=== PATIENT | male | born 1995 | race Caucasian/White ===

== ENCOUNTER 2016-12-12 16:46 | Emergency (ER) | payer OTHER ==
[2016-12-12] MEDS ORDERED: fentaNYL 100 MCG/2 ML INJ IVP ONE (16:55)
--- NOTE | 2016-12-12 16:55 | EDPHY ---
H & P Stated Complaint: shoulder dislocation HPI/ROS: CHIEF COMPLAINT: Fall, shoulder pain HISTORY OF PRESENT ILLNESS: Patient arrives by EMS and is seen at time arrival. He complains of right shoulder pain. He was playing basketball when he fell awkwardly on the right arm outstretched. He felt a sudden onset of pain in the right shoulder. Significantly painful. Constant duration. Unable to move it. Some tingling in the arm. No numbness. No weakness. No head or neck injury. No pain anywhere else except the right shoulder. No position of comfort. He was administered 100 mcg of fentanyl IV and route. This did help minimally. No other associated complaints or modifying factors. PRIOR ORTHO INJURIES: None ESTABLISHED ORTHOPEDIST: None REVIEW OF SYSTEMS: Ten systems reviewed and are negative unless otherwise noted in the HPI EXAMINATION General Appearance: Alert, no distress. In obvious discomfort Cardiovascular: Pulses normal throughout. Symmetric radial pulses 2+. Brisk cap refill Neurological: A&O, sensory symmetric, strength symmetric. No wrist drop in the affected extremity Skin: Warm and dry, no rash. No laceration abrasion or contusion Extremities: Significant tenderness of the right shoulder. Range of motion not tested the right shoulder due to deformity. Range of motion of the right elbow and wrist are intact. Good strength of the right interossei. No wrist drop. Psychiatric: Mood and affect normal DIFFERENTIAL DIAGNOSES: Including but not limited to shoulder dislocation, fracture, sprain, strain MDM: 4:55 p.m. Mechanical fall with right shoulder pain. By examination, there does appear to be dislocation. No obvious area of trauma elsewhere. X-ray has been ordered. He is neurovascular intact distally. 5:00 p.m. X-ray as read by me reveals simple dislocation without obvious Bankart lesion. No fracture identified. 5:05 p.m. Successful reduction by visualization. He is neuro intact postprocedure and feeling much better. Post reduction film has been ordered. 5:20 p.m. X-ray as read by me reveals successful reduction. He remains neurovascular intact. Awake and alert conversing appropriately. We discussed discharge home with nonweightbearing on the right upper extremity until seen by Orthopedics. We discussed ED precautions. He is comfortable with this plan and discharged home in a sling and swath in stable condition, neurovascular intact. 6:00 p.m. X-ray has been read as possible Bankart lesion post reduction. I have informed the patient of this. No change in the plan, but I stressed the importance of follow up with Orthopedics for this. PROCEDURE: Closed reduction of right shoulder Consent: Verbal Location: Right shoulder Anesthesia: Intra-articular lidocaine, plain 1%, 7 mL. IV fentanyl 50 mcg Procedure: After time-out, the patient's right shoulder was placed in traction with countertraction improve traction of the scapula. Radial pulse was intact 2 + pre procedure. This was done without complication. There was successful reduction of the shoulder on 1st attempt without difficulty. Significantly improve in pain. Remains neurovascular intact. We placed him in a sling and swath postprocedure. X-rays pending. Complications: None Post-reduction film: ED Precautions: Worsening pain. Erythema, edema, cyanosis, pallor, paresthesia or anesthesia. Source: Patient, RN/MD Exam Limitations: No limitations Constitutional: Initial Vital Signs Temperature (C) 98.2 F 12/12/16 16:46 Heart Rate 85 12/12/16 16:46 Respiratory Rate 18 12/12/16 16:46 Blood Pressure 147/109 H 12/12/16 16:46 O2 Sat (%) 100 12/12/16 16:46 O2 Delivery Mode Room Air O2 (L/minute) 2 Allergies/Adverse Reactions: amoxicillin Allergy (Verified 12/12/16 16:54) Home Medications: Medication Instructions Recorded oxyCODONE HCL/ACETAMINOPHEN 1 each PO Q4-6PRN PRN #13 tablet 12/12/16 [Percocet 5-325 mg Tablet] Medical Decision Making - Diagnostics Imaging Results: Imaging Impressions Shoulder X-Ray 12/12/16 16:54 Impression: Anterior dislocation right glenohumeral joint. Shoulder X-Ray 12/12/16 17:06 Impression: Reduction of prior visualized right shoulder dislocation with apparent Hill-Sachs deformity. - Data Points Medications Given: Discontinued Medications Fentanyl (Sublimaze) 100 mcg IVP EDNOW ONE Stop: 12/12/16 16:56 Last Admin: 12/12/16 16:58 Dose: 100 mcg Departure - Departure Disposition: Home, Routine, Self-Care Clinical Impression: Dislocation of shoulder, right, closed Qualifiers: Encounter type: initial encounter Qualified Code(s): S43.004A - Unspecified dislocation of right shoulder joint, initial encounter Bankart lesion of right shoulder Qualifiers: Encounter type: initial encounter Qualified Code(s): S43.491A - Other sprain of right shoulder joint, initial encounter Condition: Good Instructions: Shoulder Dislocation (ED) Additional Instructions: 1. Nonweightbearing of the right upper extremity until seen by orthopedist 2. Do not lift right shoulder above shoulder height 3. ED precautions as discussed 4. Ibuprofen 600-800 every 8 hours as needed for pain Five. Pain medication as prescribed as needed Referrals: Patient,NotPresent [Unknown] - As per Instructions Robin Soria MD [Medical Doctor] - As per Instructions Prescriptions: oxyCODONE HCL/ACETAMINOPHEN [Percocet 5-325 mg Tablet] 1 each PO Q4-6PRN PRN # 13 tablet PRN Reason: Pain, Breakthrough
[2016-12-12] MEDS ORDERED: fentaNYL 100 MCG/2 ML INJ ONE (17:00)
[2016-12-12 18:23] VITALS: BP 134/72; PULSE 72; RESP 16; TEMP 97.9; O2SAT 97
== END 2016-12-12 18:23 | disposition home or self-care (01) ==
DX: S43.004A Unspecified dislocation of right shoulder joint, initial encounter (principal); S43.491A Other sprain of right shoulder joint, initial encounter; W18.39XA Other fall on same level, initial encounter; Y99.8 Other external cause status; Y93.67 Activity, basketball
CPT/HCPCS: 96374; J3010

== ENCOUNTER 2016-12-19 14:10 | Emergency (ER) | payer OTHER ==
[2016-12-19 14:15] VITALS: BP 138/64; PULSE 69; RESP 16; TEMP 97.7; O2SAT 99
--- NOTE | 2016-12-19 15:19 | EDPHY ---
H & P Stated Complaint: R shoulder ?dislocation Time Seen by Provider: 12/19/16 15:15 HPI/ROS: HPI: This is a 21-year-old male who presents with Chief Complaint: Right shoulder injury Location: Right shoulder Quality: Injury Duration: 1-3 hours prior to arrival Signs and Symptoms: No bleeding, no radiation, no numbness, no weakness, no tingling, no incontinence, no decreased range of motion Timing: Sudden, resolved Severity: Moderate Context: Patient had a history of a right anterior shoulder dislocation on 06/2016, seen in this ER with successful reduction. Patient admits that he has not been wearing his sling as advised never followed up with orthopedist Dr. Soria. Patient reports that he was lying on his right side on the bed, using his right hand to prop his head up, when he "felt something pop with immediate pain" in his right shoulder. He then moved his arm away from his head and felt the shoulder pop back into place. Modifying Factors: Reduction Comment: ROS: Constitutional: No fever, no chills, no weight loss Eyes: No blurred vision Respiratory: No shortness of breath, no cough Cardiovascular: No chest pain Gastrointestinal: No nausea, no vomiting no diarrhea Genitourinary: No dysuria Extremities: No myalgias Neurologic: No weakness, no numbness Skin: No rashes Hematologic: No bruising, no bleeding - Personal History Current Tetanus/Diphtheria Vaccine: Unsure Current Tetanus Diphtheria and Acellular Pertussis (TDAP): Unsure - Medical/Surgical History Hx Asthma: No Hx Chronic Respiratory Disease: No Hx Diabetes: No Hx Cardiac Disease: No Hx Renal Disease: No Hx Cirrhosis: No Hx Alcoholism: No Hx HIV/AIDS: No Hx Splenectomy or Spleen Trauma: No Other PMH: ankle surgery - Social History Smoking Status: Never smoked - Physical Exam Exam: CONSTITUTIONAL: Extremely well-appearing young adult male awake and alert, no obvious distress HEENT: Atraumatic and normocephalic, PERRL, EOMI. Tympanic membranes clear. . Oropharynx clear, no exudate and moist pink mucosa. Airway patent. No lymphadenopathy. No meningismus. Cardiovascular: Normal S1/S2, regular rate, regular rhythm, without murmur rub or gallop. PULMONARY/CHEST: Symmetrical and nontender. Clear to auscultation bilaterally Good air movement. No accessory muscle usage. ABDOMEN: Soft, nondistended, nontender, no rebound, no guarding, no peritoneal signs, no masses or organomegaly. No CVAT. EXTREMITIES: 2/2 pulses, right shoulder able to touch ipsilateral arm to contralateral shoulder. abduction 100 degrees, adduction 40 degrees, horizontal extension 40 degrees, flexion 100 degrees, extension 50 degrees. Strength 5/5. no deformities, no clubbing, no cyanosis or edema. NEUROLOGICAL: no focal neuro deficits. GCS 15. SKIN: Warm and dry, no erythema. no rash. Good capillary refill. Constitutional: Initial Vital Signs Temperature (C) 36.5 C 12/19/16 14:12 Heart Rate 69 12/19/16 14:12 Respiratory Rate 16 12/19/16 14:12 Blood Pressure 138/64 H 12/19/16 14:12 O2 Sat (%) 99 12/19/16 14:12 O2 Delivery Mode Room Air Allergies/Adverse Reactions: amoxicillin Allergy (Verified 12/12/16 16:54) Home Medications: Medication Instructions Recorded oxyCODONE HCL/ACETAMINOPHEN 1 each PO Q4-6PRN PRN #13 tablet 12/12/16 [Percocet 5-325 mg Tablet] Medical Decision Making - Diagnostics Imaging Results: Imaging Impressions Shoulder X-Ray 12/19/16 14:15 Impression: Normal Right shoulder series. Procedures: X-rays ordered X-rays reviewed via PACs and show no dislocation, AC joint space is appropriate. Advised to remain in sling and follow up with Orthopedics as advised prior. ED Course/Re-evaluation: X-ray my read does not show dislocation No signs of neurovascular compromise/tenting of skin/compartment syndrome/ extremities and joints examined above and below area of concern and are neurovascularly intact. Differential Diagnosis: Differential diagnosis includes but is not limited to shoulder dislocation, clavicle fracture, humerus fracture, glenohumeral instability, rotator cuff tear. Departure - Departure Disposition: Home, Routine, Self-Care Clinical Impression: History of closed dislocation of shoulder Condition: Good Instructions: Shoulder Dislocation (ED) Additional Instructions: Remain in splint and limit use of right upper extremity until seen by Orthopedics. Take ibuprofen 600-800 mg every 6-8 hours with food as needed for pain and inflammation. Apply ice for 30 minutes at a time; 2-3 times per day for the next 1-2 days. Follow up with Orthopedics in 5-7 days at which time they will evaluate and recommend with you if conservative management versus surgery is indicated. The x-rays obtained in the emergency department today demonstrate no evidence of an obvious fracture. Sometimes fractures are not obvious on the initial set of x-rays performed in the ED. For this reason, you should have repeat x-rays performed in 7-10 days if you are having any pain exclude the possibility of an occult fracture. Referrals: Robin Soria MD [Medical Doctor] - As per Instructions
== END 2016-12-19 15:26 | disposition home or self-care (01) ==
DX: S49.91XA Unspecified injury of right shoulder and upper arm, initial encounter (principal); Z87.828 Personal history of other (healed) physical injury and trauma; X50.9XXA Other and unspecified overexertion or strenuous movements or postures, initial encounter; Y92.89 Other specified places as the place of occurrence of the external cause; Y99.8 Other external cause status; Y93.89 Activity, other specified